=== PATIENT | female | born 1995 | race Caucasian/White ===

== ENCOUNTER 2016-12-16 14:55 | Emergency (ER) | payer OTHER ==
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
[2016-12-16 15:10] VITALS: RESP 16
[2016-12-16] MEDS ORDERED: NS 1,000 ML IV ONE (15:13)
[2016-12-16 15:20] LABS: % IMMATURE GRANULYOCYTES 0.4 % (0.0-1.1); ABSOLUTE IMMATURE GRANULOCYTES 0.04 10^3/uL (0.00-0.10); ADD DIFF? NO; ADD MORPH? NO; ADD SCAN? NO; ATYPICAL LYMPHOCYTE FLAG 30 (0-99); FRAGMENT RBC FLAG 0 (0-99); HEMATOCRIT 48.4 % (38.0-47.0); HEMOGLOBIN 15.5 g/dL (12.6-16.3); LEFT SHIFT FLG 0 (0-99); LIPEMIA HEMOLYSIS FLAG 80 (0-99); MEAN CELL HEMOGLOBIN 30.1 pg (27.9-34.1); MEAN PLATELET VOLUME 9.7 fL (8.7-11.7); PLATELET CLUMPS FLAG 10 (0-99); PLATELET COUNT 424 10^3/uL (150-400); RED BLOOD CELL COUNT 5.15 10^6/uL (4.18-5.33)
--- NOTE | 2016-12-16 15:26 | CPEKG ---
Heart Rate: 95 RR Interval: 632 P-R Interval: 144 QRSD Interval: 94 QT Interval: 356 QTC Interval: 448 P Yoder: 67 QRS Yoder: 102 T Wave Yoder: 14 EKG Severity - OTHERWISE NORMAL ECG - EKG Impression: SINUS RHYTHM EKG Impression: BORDERLINE RIGHT AXIS DEVIATION Electronically Signed By: Shawanda Hahn 16-Dec-2016 15:32:26
[2016-12-16 16:00] VITALS: O2SAT 97
[2016-12-16 16:03] LABS: ANION GAP 25 mEq/L (8-16); CALCIUM 9.8 mg/dL (8.5-10.4); CARBON DIOXIDE 11 mEq/l (22-31); CHLORIDE 109 mEq/L (97-110); GLOMERULAR FILTRATION RATE > 60; GLUCOSE 58 mg/dL (70-100); POTASSIUM 3.7 mEq/L (3.5-5.2); SODIUM 145 mEq/L (134-144)
[2016-12-16 17:26] VITALS: BP 123/75; PULSE 89; TEMP 98.2
== END 2016-12-16 17:33 | disposition home or self-care (01) ==
DX: R56.9 Unspecified convulsions (principal); E11.649 Type 2 diabetes mellitus with hypoglycemia without coma; V89.2XXA Person injured in unspecified motor-vehicle accident, traffic, initial encounter; Y92.410 Unspecified street and highway as the place of occurrence of the external cause